=== PATIENT | male | born 1970 | race Caucasian/White ===

== ENCOUNTER 2025-09-15 12:03 | Emergency (ER) | payer OTHER, SELFPAY ==
[2025-09-15 12:07] VITALS: BP 184/90
[2025-09-15 15:15] LABS: Hematocrit 44.3 % (39.0-52.0); Hemoglobin 14.7 g/dL (13.0-18.0); Mean Corp Hgb Conc. 33.2 g/dL (33.0-37.0); Mean Corpuscular Volume 94.3 fL (80.0-94.0); Nucleated Red Blood Cells % 0 % (-); Platelet Count 268 10^3/uL (130-400); Red Cell Dist. Width 13.7 % (11.5-14.5)
[2025-09-15 15:20] LABS: ALT (SGPT) 36 U/L (0-50); AST (SGOT) 30 U/L (17-59); Albumin 3.8 g/dl (3.5-5.0); Alkaline Phosphatase 56 U/L (38-126); Blood Urea Nitrogen 12 mg/dl (9-20); Calcium 8.7 mg/dl (8.4-10.2); Carbon Dioxide 30 mmol/L (22-30); Chloride 104 mmol/L (98-107); Glucose 104 mg/dl (70-99); Potassium 4.6 mmol/L (3.5-5.1); Sodium 137 mmol/L (135-145); Total Protein 6.8 g/dl (6.3-8.2); eGFR > 60.00
--- NOTE | 2025-09-15 15:47 | ED.GENMED ---
History of Present Illness
General
Chief Complaint: Musculo-Skeletal Complaint
Source: patient and spouse
Exam Limitations: none
Time Seen by Provider: 09/15/25 13:41
History of Present Illness
History of Present Illness:
Note:
CHIEF COMPLAINT(S)
Pain and redness in the left leg.
HISTORY OF PRESENT ILLNESS
The patient is a 54-year-old male who presented with concern for pain and redness in his left leg for the past several days. he described the pain as moderate, primarily located on the medial aspect of the left leg, mostly above the knee. The
patient was concerned about a potential deep vein thrombosis (DVT), though she has no history of DVT. he reported wearing compression stockings for known lipedema and having previously undergone vein removal surgery. The affected area is described
as warm and tender with induration along a superficial vein, suggesting possible superficial thrombophlebitis or thrombophlebitis. There is no history of open wounds that might suggest cellulitis.
PAST MEDICAL AND SURGICAL HISTORY
The patient reported having lipedema and previously undergoing a procedure to remove varicose veins. She denies having high blood pressure, diabetes, or high cholesterol.
CHRONIC MEDICAL CONDITIONS SIGNIFICANTLY AFFECTING CARE
The patient is noted to be obese, which she acknowledges impacts her venous health, possibly increasing the risk of thrombosis.
ALLERGIES
The patient reports no known drug allergies.
SOCIAL HISTORY
The patient has a history of significant weight fluctuations, having previously lost a substantial amount through swimming, walking, and dietary modifications.
PHYSICAL EXAM
General: Alert, no acute distress.
Skin: Warm, dry, with induration noted on the medial aspect of the left calf and thigh. Redness is observed from the groin to the knee on the thigh and below the knee on the medial aspect of the left leg.
Head: Normocephalic, atraumatic.
Neck: Supple, trachea midline.
Eye, Ears, Nose, Mouth and Throat: Oral mucosa moist.
Cardiovascular: Normal peripheral perfusion, no edema.
Respiratory: Respirations are non-labored.
Gastrointestinal: Abdomen nondistended.
Back: Normal range of motion, normal alignment.
Musculoskeletal: Normal range of motion, normal strength.
Neurological: Alert and oriented to person, place, time, and situation. No focal neurological deficit observed.
Psychiatric: Cooperative, appropriate mood and affect.
PROBLEM LIST
Acute:
- Suspected superficial thrombophlebitis of the left leg
PLAN
An ultrasound of the left leg was ordered to assess for superficial thrombophlebitis and rule out DVT. Lab work was also requested to evaluate blood counts. The patient was advised that warm compresses and anti-inflammatory medication could be
helpful for symptoms. She was reassured that the condition does not appear to be related to DVT that would lead to pulmonary embolism.
DIFFERENTIAL DIAGNOSIS
The Differential Diagnosis includes, in no particular order and is not limited to:
1. Superficial thrombophlebitis
2. Deep vein thrombosis (DVT)
3. Cellulitis
4. Lipedema exacerbation
5. Varicose vein complications
6. Lymphedema
7. Chronic venous insufficiency
8. Infection of the skin or underlying structures
9. Inflammatory response due to compression stocking
10. Foreign body reaction or insect bite
CARE-UPDATE
09/15/25 - 15:30
The patient has a superficial vein clot extending to the proximal greater saphenous vein. Due to potential risks of clot progression towards deep veins, treatment with blood thinners is recommended over aspirin for increased safety. The patient was
advised on potential bleeding risks associated with blood thinners, such as increased bleeding from injuries or nosebleeds, and was instructed to seek medical attention if such events occur. Treatment duration is anticipated for 4-6 weeks, with
reassessment upon symptom resolution. Warm compresses are suggested as adjunctive therapy to aid in symptom relief. The patient should maintain a level of physical activity, such as walking, to support overall health and potentially improve knee
issues and lymphedema. A follow-up ultrasound may be considered to evaluate clot resolution. Initial dosing of the blood thinner will be provided, with further prescriptions arranged through the patients pharmacy.
Disposition:
SUMMARY OF ENCOUNTER
A 54-year-old obese female presented with symptoms concerning for superficial thrombophlebitis of the left lower extremity characterized by pain, redness, and tenderness. An ultrasound demonstrated no deep vein thrombosis in the left common femoral,
proximal femoral, or popliteal vein but showed clot within the proximal left greater saphenous vein, occlusion of the ablated left greater saphenous vein within the mid to distal thigh, and occlusive thrombus in varicose veins of the thigh and calf.
The patients history includes endovenous ablation of the left greater saphenous vein. Considering the extent and location of the superficial clot and the patients obesity, anticoagulation therapy with apixaban was deemed a more conservative and
safer option than aspirin alone.
DISPOSITION
Discharge to primary care physician for follow-up management.
ASSESSMENT
Suspected superficial thrombophlebitis with occlusive thrombus in the left lower extremity veins, particularly the proximal greater saphenous vein.
PLAN
The patient will start on apixaban for anticoagulation to manage the superficial thrombophlebitis, with follow-up care arranged through the patients primary care physician to monitor the resolution of the superficial clot. Patient education included
the importance of weight management.
INDEPENDENT REVIEW OF LABS AND INTERPRETATION OF TESTS
My independent review of CBC is normal. My independent review of CMP is normal. My independent review of the ultrasound of the left leg indicates no evidence of deep vein thrombosis at allison sites (left common femoral, proximal femoral, popliteal
vein) but reveals clot within the proximal left greater saphenous vein and occlusion of the ablated left greater saphenous vein within the mid to distal thigh, along with occlusive thrombus in varicose veins of the thigh and calf.
PATIENT EDUCATION AND COUNSELING
The patient was counseled on the importance of weight loss to reduce the risk of future thrombotic events and enhance overall venous health.
FOLLOW-UP INSTRUCTIONS
The patient is advised to follow up with their primary care physician to consider transitioning off apixaban once the superficial clotting has resolved.
MEDICATION RECONCILIATION
Apixaban was prescribed to manage the patients superficial thrombophlebitis.
MEDICAL DECISION MAKING
-Complexity of Data Reviewed: Chronic conditions affecting care include obesity and a history of endovenous ablation of the left greater saphenous vein. Differential Diagnoses considered included superficial thrombophlebitis, deep vein thrombosis,
varicose vein complications, and lipedema exacerbation.
-Data:
Category 1
The patient�s CBC and CMP were reviewed and found to be normal. An ultrasound of the left leg was performed and independently interpreted.
-Risk:
Prescription drug management initiated with apixaban for anticoagulation therapy in the treatment of superficial thrombophlebitis.
DIAGNOSIS
Superficial thrombophlebitis (ICD-10: I80.01)
Thrombosis of superficial vein (ICD-10: I80.2)
Obesity (ICD-10: E66.9)
Past History
Past History
ED Past Medical History: Hypothyroidism and Other (Lymphedema)
ED Past Surgical History: None
Social History
Tobacco: Non-smoker
Alcohol: None
Drug: None
Personal:
Living: with family
Phy Exam
Physical Exam
Physical Exam:
.
Course
Orders/Labs/Results
Orders:
Orders
09/15/25 13:52
US Periph Venous LOWER Ext LT Urgent
Comment:
Reason For Exam: swelling, redness
09/15/25 14:50
Complete Blood Count/With Diff Urgent
Comprehensive Metabolic Panel Urgent
09/15/25 15:06
0.9% Sodium Chloride 1000 ml [Nss] 1,000 ml IV BOLUS
09/15/25 15:46
Apixaban [Eliquis] 10 mg PO NOW STA
09/15/25 15:47
Vital Signs- Treatment ONCE
Frequency: Once
Abnormal Lab Results
09/15/25
14:50
MCV 94.3 H fL
(80.0-94.0)
MCH 31.3 H pg
(27.0-31.0)
Absolute Monos (auto) 0.8 H 10^3/uL
(0.1-0.6)
Lymphocytes % 16.8 L %
(20.5-51.1)
Glucose 104 H mg/dl
(70-99)
09/15/25 14:50
09/15/25 14:50
Vital Signs
Initial and Last Documented VS:
Initial Vital Signs
Temp Pulse Resp BP Pulse Ox
97.4 F 80 20 184/90 95
09/15/25 12:07 09/15/25 12:07 09/15/25 12:07 09/15/25 12:07 09/15/25 12:07
Last Documented Vital Signs
Temp Pulse Resp BP Pulse Ox
97.4 F 80 20 184/90 95
09/15/25 12:07 09/15/25 12:07 09/15/25 14:06 09/15/25 12:07 09/15/25 15:47
*Pulse Oximetry
SaO2: 95
Oxygen Mode of Delivery: Room air
Patient hypoxic: no
*Critical Care Note
Total Time (30-74mins, 75-104mins- exclusive of procedures): Not Applicable
ED Attending Note
-
Portions of this chart may have been created with voice recognition software.� Occasional wrong word or��sound alike� substitutions may have occurred due to the inherent limitations of voice recognition software.
Discharge Plan
Departure
Patient Disposition: Home (Routine Discharge)
Date of Disposition: 09/15/25
Time of Disposition: 15:47
Patient with high blood pressure during this ER visit?: Yes
Discharge Problem:
Superficial thrombophlebitis of great saphenous vein, Superficial thrombophlebitis
Instructions: Superficial vein phlebitis and thrombosis
Prescriptions:
New
Eliquis DVT-PE Treat 30D Start 5 mg (74 tabs) tablets,dose pack
5 mg PO ONCE Qty: 74 0RF
No Action
levothyroxine 175 MCG tablet
175 mcg PO DAILY@0700
hydrocodone-acetaminophen 1 TABLET tablet
1 tab PO Q4HPRN PRN (Reason: severe pain) Qty: 15 0RF
Referrals:
John Mcconnell Jr., DO [Family Provider, Internal Medicine]
Activity Restrictions/Additional Instructions:
Please see your doctor in the next 1 week for follow-up and reevaluation. Consider repeat ultrasound in the next 2 weeks. Return immediately for chest pain, shortness of breath, swelling of the leg, worsening symptoms, fever or any other concerns.
Please apply warm compresses aggressively as discussed.
Interventions
Interventions:
*Risk Screen - Suicide Last Done: 09/15/25 12:07
*General Assessment Last Done: 09/15/25 15:19
*Neglect/Abuse Screening Last Done: 09/15/25 14:05
*ED- Fall Risk Assessment Last Done: 09/15/25 15:19
*ED COVID-19 Vaccine History Last Done: 09/15/25 14:05
*ED Influenza Vaccine History Last Done: 09/15/25 14:05
ED-Musculoskeletal Assessment Last Done: 09/15/25 14:05
Discharge Date and Time
Print Language: DIVEHI
[2025-09-15] MEDS: ELIQUIS 10 MG PO (15:56)
[2025-09-15 15:58] VITALS: BP 127/78
== END 2025-09-15 16:05 | disposition home or self-care (01) ==
LOC: EMR 12:03
PROVIDERS: EMERGENCY PHYSICIAN Emergency Medicine; FAMILY PHYSICIAN Family Medicine
DX: I80.02 Phlebitis and thrombophlebitis of superficial vessels of left lower extremity (principal); M79.605 Pain in left leg; L53.9 Erythematous condition, unspecified; E66.9 Obesity, unspecified; R03.0 Elevated blood-pressure reading, without diagnosis of hypertension
CPT/HCPCS: 99284; 80053; 85025; 93971